=== PATIENT | male | born 1965 | race Caucasian/White ===

== ENCOUNTER 2016-10-29 05:49 | Emergency (ER) | payer BC ==
[~2016-10-29] VITALS: Ht 157.5 cm; Wt 64.0 kg
[2016-10-29] MEDS ORDERED: HEMORRHOID TP (06:01)
[2016-10-29] MEDS ORDERED: LIDOCAINE HCL 1% 20 ML VIAL INJ ONE (08:00)
[2016-10-29 10:00] VITALS: BP 112/72
== END 2016-10-29 10:20 | disposition home or self-care (01) ==
LOC: EMS 05:51
DX: K61.1 Rectal abscess (principal)
CPT/HCPCS: 46040; 99284; J3490

== ENCOUNTER 2016-11-01 08:40 | Emergency (ER) | payer BC ==
[~2016-11-01] VITALS: Ht 165.1 cm; Wt 52.0 kg
[~2016-11-01 08:40] MED LIST: HEMORRHOID TP
[2016-11-01] MEDS ORDERED: ANTIBIOTIC PO (08:45)
[2016-11-01 08:53] VITALS: BP 120/80
== END 2016-11-01 09:07 | disposition home or self-care (01) ==
LOC: EMS 08:44
DX: Z48.00 Encounter for change or removal of nonsurgical wound dressing (principal); K61.1 Rectal abscess
CPT/HCPCS: 99283

== ENCOUNTER 2022-06-30 14:23 | Emergency (ER) | payer BC, OTHER ==
[~2022-06-30] VITALS: Ht 162.6 cm; Wt 75.0 kg
[~2022-06-30 14:23] MED LIST changes: +ANTIBIOTIC PO; -HEMORRHOID TP
[2022-06-30] MEDS ORDERED: METF-1211 PO (14:32)
[2022-06-30] MEDS ORDERED: ASPI-1450 PO (14:32)
[2022-06-30 14:38] VITALS: BP 131/90
[2022-06-30] MEDS ORDERED: CEPH-558 PO (14:40)
[2022-06-30] MEDS ORDERED: SULF-261 PO (14:40)
== END 2022-06-30 14:43 | disposition home or self-care (01) ==
LOC: EMS 14:23
DX: L02.31 Cutaneous abscess of buttock (principal); E11.9 Type 2 diabetes mellitus without complications
CPT/HCPCS: 82962; 99283

== ENCOUNTER 2022-10-21 18:02 | Emergency (ER) | payer BC, OTHER ==
[~2022-10-21] VITALS: Ht 157.5 cm; Wt 79.5 kg
[~2022-10-21 18:02] MED LIST changes: -ANTIBIOTIC PO; +ASPI-1450 PO; +CEPH-558 PO; +METF-1211 PO; +SULF-261 PO
[2022-10-21 18:03] VITALS: BP 128/85; PULSE 74; RESP 18; TEMP 98.7
[2022-10-21] MEDS ORDERED: ENAL-92 PO (18:09)
[2022-10-21] MEDS ORDERED: ATOR40TA71 PO (18:09)
[2022-10-21] MEDS ORDERED: DAPA5TAB PO (18:09)
[2022-10-21 19:11] LABS: COVID AG,FIA SOURCE NASAL SWAB
== END 2022-10-21 21:30 | disposition left against medical advice (07) ==
LOC: EMS 19:30
DX: R06.02 Shortness of breath (principal); Z20.822 Contact with and (suspected) exposure to COVID-19; Z53.21 Procedure and treatment not carried out due to patient leaving prior to being seen by health care provider
CPT/HCPCS: 99281; 87426; 93005; C9803; Z7502

== ENCOUNTER 2023-11-19 20:05 | Emergency (ER) | payer BC, MEDICAID, OTHER ==
[~2023-11-19] VITALS: Ht 165.1 cm; Wt 75.9 kg
[~2023-11-19 20:05] MED LIST changes: +ATOR40TA71 PO; -CEPH-558 PO; +DAPA5TAB PO; +ENAL-128 PO; -SULF-261 PO
[2023-11-19 20:24] VITALS: BP 138/84; PULSE 84; RESP 14; TEMP 98.9; O2SAT 97
[2023-11-19 20:50] LABS: GLUCOMETER DEV NAME(LOC) ERT.6; GLUCOSE,POINT OF CARE 286 MG/DL (70-110)
[2023-11-19 21:05] LABS: BASOPHILS % (AUTO) 0.4 % (0.0-2.0); EOSINOPHILS % (AUTO) 1.8 % (1.0-6.0); HEMATOCRIT 39.9 % (41-53); HEMOGLOBIN 13.5 g/dL (13.5-17.5); LYMPHOCYTES # (AUTO) 3.5 K/uL (1.0-4.8); LYMPHOCYTES % (AUTO) 43.3 % (22.0-44.0); MEAN CORPUSCULAR HEMOGLOBIN 30.5 pg (26.0-34.0); MEAN CORPUSCULAR HGB CONC 33.8 G/dL (31.0-37.0); MEAN CORPUSCULAR VOLUME 91 fL (80-100); MONOCYTES # (AUTO) 0.7 K/uL (0.1-1.0); MONOCYTES % (AUTO) 9.1 % (2.0-9.0); NEUTROPHILS # (AUTO) 3.7 K/uL (1.8-7.7); NEUTROPHILS % (AUTO) 45.4 % (40.0-70.0); PLATELET COUNT (AUTO) 135 K/uL (150-450); WHITE BLOOD COUNT (AUTO) 8.2 K/uL (4.5-11.0)
[2023-11-19 21:13] LABS: ANION GAP 11 mmol/L (8-16); CALCIUM, TOTAL 8.6 mg/dL (8.8-10.5); CARBON DIOXIDE 24 mmol/L (22-29); CHLORIDE 99 mmol/L (98-107); CREATININE 0.98 mg/dL (0.60-1.30); GLOMERULAR FILTR. RATE CALC > 60 mL/min (>60); GLUCOSE,RANDOM 246 mg/dL (70-110); POTASSIUM 3.6 mmol/L (3.5-5.1); SODIUM SERUM 134 mmol/L (136-145); UREA NITROGEN, BLOOD 14 mg/dL (7-18)
[2023-11-20 01:35] LABS: APPEARANCE,URINE CLEAR (CLEAR); BILIRUBIN,URINE NEGATIVE (NEGATIVE); COLOR,URINE LIGHT YELLOW (YELLOW); GLUCOSE, URINE (UA) NEGATIVE (NEGATIVE); KETONES,URINE NEGATIVE (NEGATIVE); LEUKOCYTE ESTERASE ,URINE NEGATIVE (NEGATIVE); NITRATE,URINE NEGATIVE (NEGATIVE); OCCULT BLOOD,URINE NEGATIVE (NEGATIVE); PH,URINE 5.5 (5.0-8.0); PROTEIN,URINE NEGATIVE (NEGATIVE); SPECIFIC GRAVITIY, URINE 1.011 (1.003-1.030); UROBILINOGEN,URINE <=1.0 mg/dL (<=1.0)
== END 2023-11-20 02:05 | disposition home or self-care (01) ==
LOC: EMS 20:05
DX: E11.65 Type 2 diabetes mellitus with hyperglycemia (principal); I10 Essential (primary) hypertension
CPT/HCPCS: 80048; 81003; 82962; 85025; 99283

== ENCOUNTER 2025-01-29 17:37 | Emergency (ER) | payer MEDICAID ==
[~2025-01-29] VITALS: Ht 165.1 cm; Wt 68.2 kg
[2025-01-29 18:31] LABS: PLATELET COUNT (AUTO) 150 K/uL (150-450); RED BLOOD CELL COUNT(AUTO) 4.70 MIL/uL (4.50-5.90); RED CELL DISTRIBUTION WIDTH 14.3 % (11.5-14.5); WHITE BLOOD COUNT (AUTO) 8.6 K/uL (4.5-11.0)
[2025-01-29 18:34] LABS: CALCIUM, TOTAL 8.7 mg/dL (8.8-10.5); CREATININE 0.89 mg/dL (0.60-1.30); GLOMERULAR FILTR. RATE CALC > 60 mL/min (>60); GLUCOSE,RANDOM 167 mg/dL (70-110); SODIUM SERUM 137 mmol/L (136-145); UREA NITROGEN, BLOOD 12 mg/dL (7-18)
[2025-01-29 18:48] LABS: TROPONIN I-HIGH SENSITIVITY Less Than 4 ng/L (<76)
[2025-01-29 22:18] VITALS: BP 140/92; PULSE 71; RESP 16; TEMP 97.3; O2SAT 98
[2025-01-29] MEDS ORDERED: OMEP-148 PO (22:31)
== END 2025-01-29 23:07 | disposition home or self-care (01) ==
LOC: EMS 17:52
DX: K29.70 Gastritis, unspecified, without bleeding (principal); I10 Essential (primary) hypertension; R42 Dizziness and giddiness; E11.9 Type 2 diabetes mellitus without complications; E78.00 Pure hypercholesterolemia, unspecified; Z79.899 Other long term (current) drug therapy; Z79.82 Long term (current) use of aspirin
CPT/HCPCS: 71045; 80048; 82962; 84484; 85025; 93005; 99285; 36415-L1; 36415-TC

== ENCOUNTER 2025-02-16 20:04 | Emergency (ER) | payer MEDICAID ==
[~2025-02-16] VITALS: Ht 165.1 cm; Wt 77.3 kg
[~2025-02-16 20:04] MED LIST changes: +OMEP-148 PO
[2025-02-16 20:53] LABS: PLATELET COUNT (AUTO) 247 K/uL (150-450); RED BLOOD CELL COUNT(AUTO) 4.82 MIL/uL (4.50-5.90); RED CELL DISTRIBUTION WIDTH 14.2 % (11.5-14.5); WHITE BLOOD COUNT (AUTO) 8.5 K/uL (4.5-11.0)
[2025-02-16 21:00] LABS: CALCIUM, TOTAL 9.0 mg/dL (8.8-10.5); CREATININE 0.98 mg/dL (0.60-1.30); GLOMERULAR FILTR. RATE CALC > 60 mL/min (>60); GLUCOSE,RANDOM 119 mg/dL (70-110); SODIUM SERUM 136 mmol/L (136-145); UREA NITROGEN, BLOOD 15 mg/dL (7-18)
[2025-02-16 22:51] LABS: TROPONIN I-HIGH SENSITIVITY Less Than 4 ng/L (<76)
[2025-02-16 22:52] LABS: ASPARTATE AMINOTRANSFERASE 21.0 U/L (15-37); TOTAL PROTEIN, SERUM 8.4 g/dL (6.4-8.2)
[2025-02-16] MEDS ORDERED: IOHEXOL 300 MG/ML 100 ML VIAL ONE (23:21)
[2025-02-17] MEDS: ACETAMINOPHEN 500 MG TABLET PO ONE (00:41)
[2025-02-17] MEDS: FAMOTIDINE 20 MG/2 ML VIAL IVP ONE (00:41)
[2025-02-17] MEDS: MAG HYDROX/ALUMINUM HYD/SIMETH 30 ML SUSPENSION UDCUP PO ONE (00:41)
[2025-02-17] MEDS: SODIUM CHLORIDE 0.9% 1,000 ML IV ONE (00:41)
[2025-02-17] MEDS: ONDANSETRON HCL 4 MG/2 ML VIAL IVP ONE (00:41)
[2025-02-17] MEDS ORDERED: IOHEXOL 300 MG/ML 100 ML VIAL ONE (00:53)
[2025-02-17 00:57] LABS: TROPONIN I-HIGH SENSITIVITY 4 ng/L (<76)
[2025-02-17 01:26] VITALS: BP 138/92; PULSE 75; RESP 16; O2SAT 98
[2025-02-17 02:50] LABS: APPEARANCE,URINE CLEAR (CLEAR); GLUCOSE, URINE (UA) NEGATIVE (NEGATIVE); LEUKOCYTE ESTERASE ,URINE NEGATIVE (NEGATIVE); NITRATE,URINE NEGATIVE (NEGATIVE); OCCULT BLOOD,URINE NEGATIVE (NEGATIVE); SPECIFIC GRAVITIY, URINE 1.022 (1.003-1.030)
== END 2025-02-17 03:14 | disposition home or self-care (01) ==
LOC: EMS 20:04
DX: R10.33 Periumbilical pain (principal); R11.2 Nausea with vomiting, unspecified; E11.9 Type 2 diabetes mellitus without complications; E78.00 Pure hypercholesterolemia, unspecified; I10 Essential (primary) hypertension; Z90.49 Acquired absence of other specified parts of digestive tract; Z79.82 Long term (current) use of aspirin; Z79.899 Other long term (current) drug therapy
CPT/HCPCS: 99285; 71045; 80048; 80076; 81003; 82962; 83690; 84484; 85025; 93005; 74177; 96374; 96361; 96375; 36415; Q9967 ×2; J3490; J2405; J7030